=== PATIENT | female | born 1955 | race Caucasian/White ===

== ENCOUNTER 2020-07-08 15:20 | Outpatient (CLI) | payer OTHER | END 2020-07-08 15:21 | disposition home or self-care (01) | LOC: COV 15:20 | PROVIDERS: ATTEND Family Medicine | DX: M79.10 Myalgia, unspecified site (principal); R53.83 Other fatigue; J02.9 Acute pharyngitis, unspecified; R19.7 Diarrhea, unspecified; R09.81 Nasal congestion; R11.2 Nausea with vomiting, unspecified; Z20.828 Contact with and (suspected) exposure to other viral communicable diseases ==

== ENCOUNTER 2021-09-03 11:26 | Emergency (ER) | payer MEDICARE, OTHER ==
[2021-09-03 11:39] VITALS: BP 129/73
--- NOTE | 2021-09-03 12:01 | ED Physician Documentation ---
PD HPI LOWER EXT INJURY - Stated complaint Stated Complaint: Radha VELÁSQUEZ PX - Chief complaint Chief Complaint: Ext Problem - History obtained from History obtained from: Patient - History of Present Illness PD HPI LOW EXT INJURY LOCATION: Right, Lower leg Type of injury: Other (pain with movement tightness to the back of the calf) Timing - onset: How many weeks ago (3) Timing - duration: Weeks (3) Timing - details: Gradual onset, Still present Improved by: Rest Worsened by: Moving, Palpating Associated symptoms: Swelling. No: Weakness, Numbness, Tingling Contributing factors: No: Anticoagulated Similar symptoms before: Has not had sx before Recently seen: Not recently seen - Additional information Additional information: Previously well 66-year-old female has developed some pain in her right calf. She has pain when she attempts to ambulate and with certain stretching. She describes this as a tightness to the back part of her leg. She has had symptoms for about 3 weeks. They have not resolved. She feels like there might even be some swelling to her right ankle. She notes that over the summer when she ever she is driving she has been having a little bit of pain in her calf from placing her foot on the accelerator. This is a new symptom for the patient.She has a partner that has recently been diagnosed with deep vein thrombosis. Review of Systems Constitutional: denies: Fever, Chills Eyes: denies: Decreased vision Ears: denies: Ear pain Nose: denies: Congestion Throat: denies: Sore throat Respiratory: denies: Cough GI: denies: Nausea, Vomiting PD PAST MEDICAL HISTORY - Allergies Allergies/Adverse Reactions: Allergies Allergy/AdvReac Type Severity Reaction Status Date / Time codeine Allergy Anaphylaxis Verified 09/03/21 11:40 morphine Allergy Anaphylaxis Verified 09/03/21 11:40 PD ED PE NORMAL - Vitals Vital signs reviewed: Yes (tachy) - General General: Alert and oriented X 3, No acute distress, Well developed/nourished - HEENT HEENT: Atraumatic, PERRL, EOMI - Respiratory Respiratory: No respiratory distress - Derm Derm: Normal color, Warm and dry, No rash - Extremities Extremities: No deformity, No edema, Other (minimal posterior calf pain to palpation no palpable cord) - Neuro Neuro: Alert and oriented X 3, 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 ), EMP read indepedently, See rad report PD MEDICAL DECISION MAKING - ED course Complexity details: reviewed results, re-evaluated patient, considered differential, d/w patient ED course: 66-year-old female with pain to the right calf has minimal tenderness has no evidence of deep vein thrombosis on duplex examination she is diagnosed with a calf strain and discharged home Departure - Departure Disposition: 01 Home, Self Care Clinical Impression: Calf pain Qualifiers: Laterality: right Qualified Code(s): M79.661 - Pain in right lower leg Instructions: ED Strain Muscle Ext Follow-Up: Lin Ferro MD [Primary Care Provider] -
--- NOTE | 2021-09-03 12:57 | Ultrasound Report ---
PROCEDURE: Duplex Ext Veins Right INDICATIONS: RLE pain TECHNIQUE: Real-time imaging, as well as color and pulse Doppler interrogation, were performed of the lower extr emity deep veins from the inguinal ligament to the popliteal fossa. COMPARISON: None. FINDINGS: The deep veins are normally compressible, and free of intraluminal thrombus. Color and pu lse Doppler demonstrate normal phasic intraluminal flow. There is normal augmentation response to di stal compression maneuver. IMPRESSION: No evidence of deep vein thrombosis involving the right lower extremity. Reviewed by: Jennifer Desouza MD, PhD on 09/03/2021 12:55 PM PST Approved by: Jennifer Desouza MD, PhD on 09/03/2021 12:55 PM PST Station ID: [id number]
== END 2021-09-03 13:38 | disposition home or self-care (01) ==
LOC: ED 11:26
DX: M79.661 Pain in right lower leg (principal)
CPT/HCPCS: 99283; 99284

== ENCOUNTER 2024-04-26 12:18 | Emergency (ER) | payer MEDICARE ==
--- NOTE | 2024-04-26 13:01 | ED Physician Documentation ---
History of Present Illness - Stated complaint Stated Complaint: SHAKEY,LOSS OF BALANCE - Chief complaint Chief Complaint: Neuro - Additonal information Additional information: 68-year-old female with history of hypertension, ADD, asthma, sleep apnea, type 2 diabetes, diverticulitis, GERD, depression, anxiety, osteoarthritis presents emergency department for shaky feeling. Patient was recently started on Wellbutrin about a week and a half ago there was confusion with how this was prescribed but she was told to double the dose to 300 mg daily about a week and a half ago is when she doubled the dose but she was taking 2 pills which equaled a total of 600 mg daily. Over the last week she has been having increased shaky sensation she says that she feels very jittery throughout her body she is having hard time with balance and feels very hyperactive. Patient is also on Adderall for her ADD which she has been taking in combination with the Wellbutrin. No chest pain no shortness of breath no focal neurological deficits. PD PAST MEDICAL HISTORY - Past Medical History Past Medical History: Yes Cardiovascular: Hypertension Respiratory: Asthma, Sleep apnea Endocrine/Autoimmune: Type 2 diabetes GI: GERD, Diverticulitis Psych: Depression, Anxiety, ADD/ADHD Musculoskeletal: Osteoarthritis, Chronic back pain - Past Surgical History Past Surgical History: No General: Colonoscopy HEENT: Tonsil/Adenoidectomy - Present Medications Home Medications: Ambulatory Orders Medication Instructions Recorded Confirmed Acetaminophen [Non-Aspirin Pain 500 mg PO BID 04/21/22 04/21/22 Relief] Albuterol Sulf [Ventolin Hfa 1 - 2 puffs INH Q4HR PRN 04/21/22 04/21/22 Inhaler] Atorvastatin [Lipitor] 20 mg PO DAILY 04/21/22 04/21/22 Dexmethylphenidate HCl 5 mg PO BID 04/21/22 04/21/22 Escitalopram Oxalate 20 mg PO HS 04/21/22 04/21/22 Famotidine [Zantac-360 10 mg PO BID 04/21/22 04/21/22 (Famotidine)] Liraglutide [Victoza 2-Shade] 1.8 mg SUBQ DAILY 04/21/22 04/21/22 Metformin HCl 1,000 mg PO DAILY 04/21/22 04/21/22 Multivitamin 1 each PO DAILY 04/21/22 04/21/22 Trazodone HCl 100 mg PO DAILY 04/21/22 04/21/22 clonazePAM [KlonoPIN] 0.5 mg PO DAILY PRN 04/21/22 04/21/22 - Allergies Allergies/Adverse Reactions: Allergies Allergy/AdvReac Type Severity Reaction Status Date / Time codeine Allergy Anaphylaxis Verified 04/26/24 13:07 morphine Allergy Anaphylaxis Verified 04/26/24 13:07 - Social History Does the pt smoke?: No Smoking Status: Never smoker Does the pt drink ETOH?: No Does the pt have substance abuse?: No - Immunizations Immunizations are current?: Yes PD ED PE NORMAL - Vitals Vital signs reviewed: Yes - General General: Alert and oriented X 3, No acute distress, Well developed/nourished - HEENT HEENT: Atraumatic, PERRL, EOMI - Neck Neck: Thyroid normal - Cardiac Cardiac: RRR - Respiratory Respiratory: No respiratory distress - Abdomen Abdomen: Normal bowel sounds, Soft - Extremities Extremities: No edema - Neuro Neuro: Alert and oriented X 3, 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, No motor deficit, No sensory deficit, Normal speech, Other (mild tremors) Results - Vitals Vitals: Vital Signs - 24 hr 04/26/24 04/26/24 12:23 14:07 Temperature 36.5 C Heart Rate 88 83 Respiratory 16 13 Rate Blood Pressure 149/70 H 136/74 H O2 Saturation 98 100 Oxygen O2 Source Room air - Labs Labs: Laboratory Tests 04/26/24 04/26/24 04/26/24 13:15 13:15 13:15 WBC 7.5 RBC 4.90 Hgb 14.4 Hct 44.7 MCV 91.2 MCH 29.4 MCHC 32.2 RDW 11.9 L Plt Count 259 MPV 9.2 Neut # (Auto) 5.1 Lymph # (Auto) 1.4 L [place] # (Auto) 0.8 Eos # (Auto) 0.1 Baso # (Auto) 0.1 Absolute Nucleated RBC 0.00 Nucleated RBC % 0.0 Sodium 136 Potassium 4.1 Chloride 102 Carbon Dioxide 30 Anion Gap 4.0 L BUN 14 Creatinine 0.7 Estimated GFR (MDRD) 83 L Glucose 114 H Calcium 10.2 Magnesium 1.9 Total Bilirubin 0.3 AST 34 ALT 55 Alkaline Phosphatase 48 Troponin I High Sens 2.4 Total Protein 6.8 Albumin 4.3 Globulin 2.5 Albumin/Globulin Ratio 1.7 Lipase 52 TSH 1.59 PD Medical Decision Making - ED course ED course: 68-year-old female presents emergency department for tremors and loss of balance. While here in the emergency department she was able to speak with her provider who recently prescribed her Wellbutrin and realized that she has been accidentally overdosing on Wellbutrin for the last week and a half. Patient has been taking 600 mg of Wellbutrin daily. Labs are complete for further evaluation make sure that she was not experiencing an acute kidney injury and kidney function appears to be just fine. Patient was told to stop taking Wellbutrin and Adderall and told to follow-up with her provider who prescribed these medications and she says that she has a Zoom appointment with that provider later tonight. She feels very comfortable going home she says that she is able to drink plenty of fluids no nausea or vomiting all questions answered patient safe for discharge return precautions given.. Departure - Departure Disposition: 01 Home, Self Care Clinical Impression: Accidental drug overdose Condition: Good Instructions: ED Overdose Accidental Comments: Thank you for trusting us with your care. I do believe that this is a side effect of an accidental medication overdose in regards to your Wellbutrin in combination with your Adderall. Please follow-up with your provider who has prescribed this for you I would stop taking all these medications and discuss moving forward with medication be helpful for you with managing your ADD with your provider who has prescribed this medication for you. Please come back to the ER if you have stopped taking all these meds for 3 to 4 days and you are still feeling the symptoms. Please also come back to the ER if you have any shortness of breath chest pain worsening tremors or any other concerning emergent symptoms. We have completed your labs you do not have any acute lab abnormalities make sure that you drink plenty of fluid to help excrete the Wellbutrin. Forms: PCP List Discharge Date/Time: 04/26/24 14:07
[2024-04-26 13:22] LABS: BASOPHILS # (AUTO) 0.1 10^3/uL (0.0-0.1); BASOPHILS % (AUTO) 0.7 %; EOSINOPHILS # (AUTO) 0.1 10^3/uL (0.0-0.7); EOSINOPHILS % (AUTO) 1.2 %; HCT - HEMATOCRIT 44.7 % (37.0-47.0); HGB - HEMOGLOBIN 14.4 g/dL (12.0-16.0); LYMPHOCYTES # (AUTO) 1.4 10^3/uL (1.5-3.5); LYMPHOCYTES % (AUTO) 19.1 %; MEAN CORPUSCULAR HEMOGLOBIN 29.4 pg (27.0-31.0); MEAN CORPUSCULAR HGB CONC 32.2 g/dL (32.0-36.0); MEAN CORPUSCULAR VOLUME 91.2 fL (81.0-99.0); MEAN PLATELET VOLUME 9.2 fL (7.9-10.8); MONOCYTES # (AUTO) 0.8 10^3/uL (0.0-1.0); MONOCYTES % (AUTO) 11.2 %; NEUTROPHILS # (AUTO) 5.1 10^3/uL (1.5-6.6); NEUTROPHILS % (AUTO) 67.7 %; PLT - PLATELET COUNT 259 10^3/uL (130-450); RED CELL DISTRIBUTION WIDTH 11.9 % (12.0-15.0); WHITE BLOOD COUNT 7.5 x10^3/uL (4.8-10.8)
[2024-04-26 13:37] LABS: ALBUMIN 4.3 g/dL (3.2-5.5); ALBUMIN/GLOBULIN RATIO 1.7 (1.0-2.2); BILIRUBIN,TOTAL 0.3 mg/dL (0.2-1.0); CALCIUM 10.2 mg/dL (8.5-10.3); CREATININE 0.7 mg/dL (0.6-1.3); MAGNESIUM 1.9 mg/dL (1.7-2.3); POTASSIUM 4.1 mmol/L (3.5-4.5); TOTAL PROTEIN 6.8 g/dL (6.4-8.9)
[2024-04-26 13:51] LABS: THYROID STIMULATING HORMONE 1.59 uIU/mL (0.34-5.60)
[2024-04-26 14:18] VITALS: BP 136/74; O2SAT 100
== END 2024-04-26 14:07 | disposition home or self-care (01) ==
LOC: ED 12:18
DX: T43.291A Poisoning by other antidepressants, accidental (unintentional), initial encounter (principal); G25.1 Drug-induced tremor; R26.81 Unsteadiness on feet; F98.8 Other specified behavioral and emotional disorders with onset usually occurring in childhood and adolescence
CPT/HCPCS: 36415; 80053; 83690; 83735; 84443; 84484; 85025; 93005; 99283

== ENCOUNTER 2024-05-03 13:57 | Outpatient (CLI) | payer MEDICARE ==
--- NOTE | 2024-05-04 13:19 | XRAY Report ---
PROCEDURE: Cervical Spine 2-3V INDICATIONS: NECK PAIN TECHNIQUE: 3 views of the cervical spine were obtained. COMPARISON: None FINDINGS: Bones: Vertebral body height and alignment is maintained. No evidence of traumatic malalignment. Ther e is straightening of normal cervical lordosis. Disc space narrowing and anterior osteophytes as well as facet sclerosis noted in the lower cervical spine Soft tissues: No prevertebral soft tissue swelling. IMPRESSION: Lower cervical spinal degenerative disc disease and arthropathy. Reviewed by: Cade Campo MD on 05/04/2024 12:18 PM LYUDMILA Approved by: Cade Campo MD on 05/04/2024 12:18 PM LYUDMILA Station ID: [id number]
== END 2024-05-03 13:58 | disposition home or self-care (01) ==
LOC: DI 13:57
PROVIDERS: ATTEND Emergency Medicine
DX: M47.812 Spondylosis without myelopathy or radiculopathy, cervical region (principal); M50.30 Other cervical disc degeneration, unspecified cervical region